=== PATIENT | female | born 1965 | race Caucasian/White ===

== ENCOUNTER 2016-09-14 13:42 | Emergency (ER) | payer BC ==
[2016-09-14 14:17] VITALS: BP 118/79
--- NOTE | 2016-09-14 20:01 | UC ---
Daja Zambrano Matthew, scribed for Aaliyah MedinaDO on 09/14/16 at 1537 . Eye Complaint HPI - HPI Summary HPI Summary: A 51 y/o female presents to [facility] with left eye swelling, and purple congestion underneath her eye since May 2016. 4 years ago the patient was at Dr. Pack 's office for left eye drooping. At that time, he touched the top of the patient 's head and she had pain, so he ordered an MRI, which showed sinusitis "behind the eye". He preformed surgery and the patent's symptoms resolved. The patient saw Dr. Pack in June for a swollen nose and left eye injection. He ordered a CT, which showed sinusitis. The patient received Abx and prednisone at that time. The patient was referred to Dr. Courtney by Dr. Jaeger for "blue in her eyes". She saw Dr. Courtney 4 weeks ago and was prescribed Tobramycin/ Dexamethasone eye drops for "clogged tear ducts" and eye infection. She states that she had mild improvement, but the symptoms are currently worse than before. She has not followed with Dr. Courtney since finishing the medications. The patient presents to [facility] today, because she thinks she has an infection. The patient has a singular itchy line that runs down her scalp and hurts more with touch. The pain is described as touching a bruise, but she's unsure when the pain started. Associated symptoms included headache, injected eyes, lump ant to the left ear, left ear pressure, and photophobia - chronically, but worse than usual. The patient denies visual changes, fever, chills, nauseas, vomiting, abdominal pain, urinary symptoms, cough, pain, sore throat, and nasal congestion. She states that she had tears in her eyes for the first time today since May. The patient has a Hx of anxiety, fibromyalgia, and RA. FHx of HTN, Diabetes, and CAD. The patient is on Coumadin. - History of Current Complaint Chief Complaint: UCGeneralIllness Stated Complaint: EAR/EYE ISSUE Time Seen by Provider: 09/14/16 14:45 Hx Obtained From: Patient ?: No Onset/Duration: Lasting Weeks, Still Present Timing: Constant Severity Initially: Mild Severity Currently: Mild Pain Intensity: 5 Pain Scale Used: 0-10 Numeric Location of Injury: Other - left eye Aggravating Factor(s): Light Alleviating Factor(s): Nothing Associated Signs And Symptoms: Positive: Photophobia. Negative: Drainage (Clear ), Drainage (Purulent), Vision Impairment Bilateral, Fever, Swelling - sweling of ey ball - Risk Factors Penetrating Injury Risk Factor: Negative Globe Rupture Risk Factors: Negative Acute Glaucoma Risk Factors: Negative - Allergies/Home Medications Allergies/Adverse Reactions: Allergies Allergy/AdvReac Type Severity Reaction Status Date / Time Eggs or Egg-derived Products Allergy Nausea Verified 01/08/14 09:53 Magnesium Salicylate Allergy Nausea Verified 01/08/14 09:53 [From Msg] Shellfish Allergy Allergy Swelling Verified 01/08/14 09:53 Sulfa Antibiotics Allergy Swelling Verified 01/08/14 09:53 Cortisone Shot Allergy Blisters Uncoded 09/14/16 14:17 iv contrast Allergy Swelling Uncoded 01/08/14 09:53 iv iodine Allergy Swelling Uncoded 01/08/14 09:53 msg Allergy Nausea Uncoded 01/08/14 09:53 PMH/Surg Hx/FS Hx/Imm Hx Previously Healthy: Yes Endocrine History Of: Denies: Diabetes, Thyroid Disease Cardiovascular History Of: Reports: Deep Vein Thrombosis - hx x 4 last in 1995 Denies: Cardiac Disorders, Hypertension, Pacemaker/ICD Respiratory History Of: Denies: COPD, Asthma GI/ History Of: Denies: Ulcer - stomach irritation - Surgical History Surgical History: Yes Surgery Procedure, Year, and Place: 3 D&C, bladder repair 2009,. TOTAL HYSTERECTOMY. BREAST REDUCTION. TUBAL LIGATION. SINUS SURGERY. BLADDER LIFT WITH MESH 09/01 AT [place] - Family History Known Family History: Positive: Cardiac Disease, Hypertension, Diabetes - Social History Lives: With Family Alcohol Use: None Substance Use Type: None Smoking Status (MU): Current Some Day Smoker - pt denied smoking when asked. stated that her neighbor with who she spends a lot of time, smokes and that is why the room smelled so strongly of smoke. pt advised that 2nd hand smoke is also increases her risk of numerous illnesses including blood clots. Amount Used/How Often: very rare, once a week at the most Have You Smoked in the Last Year: Yes Cessation Counseling: Patient Advised to Stop - pt denied smoking when asked. stated that her neighbor with who she spends a lot of time, smokes and that is why the room smelled so strongly of smoke. pt advised that 2nd hand smoke is also increases her risk of numerous illnesses including blood clots. Review of Systems Constitutional: Negative Skin: Negative Eyes: Eye Redness, Photophobia, Other - no pain with moving eye ball ENT: Other - ear pressure; lump on the left ear. pain in teeth of left maxilla Respiratory: Negative Cardiovascular: Negative Gastrointestinal: Negative Genitourinary: Negative Motor: Negative Neurovascular: Negative Musculoskeletal: Negative Neurological: Headache - sinus Psychological: Negative All Other Systems Reviewed And Are Negative: Yes Physical Exam Triage Information Reviewed: Yes Appearance: Well-Appearing, No Pain Distress, Obese Vital Signs: Initial Vital Signs Temp 97.3 F 09/14/16 14:00 Pulse 88 09/14/16 14:00 Resp 18 09/14/16 14:00 BP 118/79 09/14/16 14:00 Pulse Ox 99 09/14/16 14:00 Vital Signs Reviewed: Yes Eyes: Positive: Conjunctiva Clear, Other: - allergic shiners bl. Negative: Discharge ENT: Positive: Pharynx normal, Nasal congestion, TMs normal, Other: - Sinus tenderness elicited over the left frontal sinus; The patient has a tender preauricular lymph node on the left; Tender pruritic strip on her scalp slightly left of midline. No redness, swelling was appreciated over the area she reported to be tender.. Negative: Nasal drainage, TM bulging, TM dull, TM red, Tonsillar swelling, Tonsillar exudate, Trismus, Muffled/hoarse voice Dental: Positive: Other: - Tenderness to percussion of teeth 15, 14, and 13. Tenderness on the corresponding gingiva. Neck: Positive: Supple, Nontender Respiratory: Positive: Lungs clear, Normal breath sounds, No respiratory distress, No accessory muscle use Cardiovascular: Positive: RRR, No Murmur Musculoskeletal Exam: Normal Musculoskeletal: Positive: Strength Intact, ROM Intact Neurological Exam: Normal Neurological: Positive: Muscle Tone Normal, Other: - aox4, strength, sensation and reflexes intact bl, cn 2-12 intact, no cerebellar signs Psychological: Positive: Age Appropriate Behavior Skin Exam: Other - dry, normal color Eye Complaint Course/Dx - Course Course Of Treatment: The patient reports that she has not been taking methotrexate for over a month since she first developed symptoms, so it is ok for her to take amoxicillin at this time. - Differential Dx/Diagnosis Differential Diagnosis/HQI/PQRI: Conjunctivitis, Periorbital Cellulitis, Other - sinusitis,tooth ache, Provider Diagnoses: sinusitis, toothache, blocked tear duct - Physician Notification/Consults Discussed Patient Care With: Dr. Pack (ENT) at 15:51 -- Notified of patient's history and he will have her follow-up at his office tomorrow. Discharge - Discharge Plan Condition: Stable Disposition: HOME Prescriptions: Amoxicillin CAP* [Amoxicillin 500 MG CAP*] 500 mg PO Q12H #20 cap Patient Education Materials: Sinusitis (ED), Toothache (ED) Referrals: Chano Pack MD [Medical Doctor] - 1 Day (Follow up first thing in the morning tomorrow.) Lev Courtney MD [Medical Doctor] - (follow up in 3-5 days) Connie Raygoza MD [Medical Doctor] - (follow up in 2-3 days for INR recheck) Additional Instructions: AMOXICILLIN: Amoxicillin is a member of the penicillin family. It covers the germs likely to cause ear, bronchial, and urinary infections better than plain penicillin. Amoxicillin can be taken without regard to meals. Nausea after taking the medication is rare, but can occur. Diarrhea can occur, particularly in small children. Vaginal yeast infections and oral thrush in infants are also common. Contact your physician if these problems occur. Allergy to penicillins is common. If you have had an allergic reaction to any drug of the penicillin family, you should never take any other penicillin. Notify your doctor at once if you develop hives, itching, swelling, faintness, or shortness of breath. Less serious side effects can include nausea or diarrhea. ANY TIME YOU TAKE AN ANTIBIOTIC, IT IS IMPORTANT TO REPLENISH THE BODY'S BALANCE OF "GOOD" BACTERIA BY EATING HIGH QUALITY CULTURED FOOD SUCH YOGURT, SAURKRAUT OR DARI CHI AND/OR TAKING A PROBIOTIC SUPPLEMENT. YOU WILL ALSO NEED TO FOLLOW UP WITH YOUR DENTIST. PLEASE CALL TOMORROW AND REQUEST AN APPOINTMENT. The documentation as recorded by the Daja ly Matthew accurately reflects the service I personally performed and the decisions made by , Aaliyah Medina DO.
== END 2016-09-14 16:18 | disposition home or self-care (01) ==
LOC: UCEAST 13:42
DX: J32.9 Chronic sinusitis, unspecified (principal); K08.89 Other specified disorders of teeth and supporting structures; H04.89 Other disorders of lacrimal system; F17.210 Nicotine dependence, cigarettes, uncomplicated; Z88.2 Allergy status to sulfonamides; Z91.012 Allergy to eggs; Z91.041 Radiographic dye allergy status; Z91.013 Allergy to seafood; Z86.718 Personal history of other venous thrombosis and embolism; Z79.01 Long term (current) use of anticoagulants
CPT/HCPCS: 99212; G0463

== ENCOUNTER 2016-12-29 11:46 | Emergency (ER) | payer BC ==
[2016-12-29 13:20] VITALS: BP 127/76
--- NOTE | 2016-12-29 13:37 | UC ---
Complaint Female HPI - HPI Summary HPI Summary: Pt presents with intermittent dysuria X 2-3 weeks. Pt saw scant amount of blood on toilet paper this morning - History Of Current Complaint Chief Complaint: UCGU Stated Complaint: URINARY Time Seen by Provider: 12/29/16 13:32 Hx Obtained From: Patient ?: No Onset/Duration: Sudden Onset, Lasting Weeks Timing: Constant Severity Initially: Mild Severity Currently: Mild Character: Dull, Burning Aggravating Factor(s): Urination - Allergies/Home Medications Allergies/Adverse Reactions: Allergies Allergy/AdvReac Type Severity Reaction Status Date / Time Eggs or Egg-derived Products Allergy Nausea Verified 12/29/16 13:21 Magnesium Salicylate Allergy Nausea Verified 12/29/16 13:21 [From Msg] Shellfish Allergy Allergy Swelling Verified 12/29/16 13:21 Sulfa Antibiotics Allergy Swelling Verified 12/29/16 13:21 Amoxicillin [From Augmentin] AdvReac Nausea And Verified 12/29/16 13:21 Vomiting Clavulanic Acid AdvReac Nausea And Verified 12/29/16 13:21 [From Augmentin] Vomiting Codeine AdvReac Nausea And Verified 12/29/16 13:21 Vomiting Cortisone Shot Allergy Blisters Uncoded 12/29/16 13:21 iv contrast Allergy Swelling Uncoded 12/29/16 13:21 iv iodine Allergy Swelling Uncoded 12/29/16 13:21 msg Allergy Nausea Uncoded 12/29/16 13:21 PMH/Surg Hx/FS Hx/Imm Hx Previously Healthy: Yes Neurological History: Other - fibromyalgia Other Neurological History: fibromyalgia - Surgical History Surgical History: Yes Surgery Procedure, Year, and Place: 3 D&C, bladder repair 2009,. TOTAL HYSTERECTOMY. BREAST REDUCTION. TUBAL LIGATION. SINUS SURGERY. BLADDER LIFT WITH MESH 09/01 AT [place] - Family History Known Family History: Positive: Cardiac Disease, Hypertension, Diabetes - Social History Alcohol Use: None Substance Use Type: None, Prescribed Smoking Status (MU): Current Some Day Smoker Amount Used/How Often: very rare, once a week at the most Have You Smoked in the Last Year: Yes Review of Systems Constitutional: Negative Skin: Negative Eyes: Negative ENT: Negative Respiratory: Negative Cardiovascular: Negative Gastrointestinal: Abdominal Pain - pelvic Genitourinary: Dysuria, Hematuria Motor: Negative Neurovascular: Negative Musculoskeletal: Negative Neurological: Negative Psychological: Negative All Other Systems Reviewed And Are Negative: Yes Physical Exam Triage Information Reviewed: Yes Appearance: Well-Appearing Vital Signs: Initial Vital Signs Temp 98 F 12/29/16 13:11 Pulse 86 12/29/16 13:11 Resp 16 12/29/16 13:11 BP 127/76 12/29/16 13:11 Pulse Ox 98 12/29/16 13:11 Eye Exam: Normal ENT Exam: Normal Neck exam: Normal Respiratory Exam: Normal Cardiovascular Exam: Normal Abdominal Exam: Other Abdomen Description: Positive: Other: - superpubic Musculoskeletal Exam: Normal Neurological Exam: Normal Psychological Exam: Normal Skin Exam: Normal Complaint Female Dx - Differential Dx/Diagnosis Differential Diagnosis/HQI/PQRI: Urinary Tract Infection Provider Diagnoses: UTI. hematuria Discharge - Discharge Plan Condition: Stable Disposition: HOME Prescriptions: Nitrofurantoin Macrocrystals* [Macrodantin*] 100 mg PO Q12H #10 cap Phenazopyridine TAB* [Pyridium 100 mg TAB*] 100 mg PO TID #6 tab Patient Education Materials: Urinary Tract Infection in Women (ED), Hematuria ( ED) Referrals: Carri Blum MD [Primary Care Provider] -
--- NOTE | 2016-12-31 13:47 | UC ---
Progress - Progress Note Progress Note: urine cx is negative - pt should d/c nitrofurantoin
== END 2016-12-29 13:49 | disposition home or self-care (01) ==
LOC: UCCORT 11:46
DX: N39.0 Urinary tract infection, site not specified (principal); R31.9 Hematuria, unspecified
CPT/HCPCS: 81003; 87086; 99212; G0463